=== PATIENT | male | born 1970 | race Caucasian/White ===

== ENCOUNTER 2019-03-08 08:47 | Emergency (ER) | payer MEDICAID ==
[~2019-03-08] VITALS: Ht 182.9 cm; Wt 99.8 kg
[2019-03-08] MEDS ORDERED: PROMETHAZINE HC25 M1 PO (10:01)
[2019-03-08] MEDS ORDERED: NORCO 5-325 TA1 EACH PO (10:01)
--- NOTE | 2019-03-10 10:56 | EKG ---
[facility] [address] [place], [place] [address] Signed Sinus bradycardia with sinus arrhythmia Otherwise normal ECG No previous ECGs available Confirmed by TARAN BRENNAN MD ([id number] on 03/10/2019 10:55:53 AM Electronically Signed By: TARAN BRENNAN MD 03/10/19 1056 PATIENT NAME: OPHELIA GEORGES [place] Electrocardiogram DATE OF : 68 PHYSICIAN: TARAN BRENNAN MD REPORT #: [id number] REPORT IS CONFIDENTIAL AND NOT TO BE RELEASED WITHOUT AUTHORIZATION
== END 2019-03-08 10:15 | disposition home or self-care (01) ==
LOC: ED 08:47
DX: K85.90 Acute pancreatitis without necrosis or infection, unspecified (principal)
CPT/HCPCS: 80053; 83690; 85025; 93005; 93010; 96374; 96375; 99284-25; G0480; J2765; J3010; J7030